=== PATIENT | male | born 1940 | race Caucasian/White ===

== ENCOUNTER 2018-05-16 18:31 | Emergency (ER) | payer OTHER ==
--- NOTE | 2018-05-16 20:12 | RAD REPORT ---
EXAM DESCRIPTION: CT - Head Brain Wo Cont - 05/16/2018 7:52 pm CLINICAL HISTORY: Blunt force trauma, right-sided head laceration, history of leukemia and thrombocy topenia COMPARISON: None. TECHNIQUE: Axial 5 mm thick images of the head were obtained without IV contrast. All CT scans are performed using dose optimization technique as appropriate and may include automated exposure control or mA/KV adjustment according to patient size. FINDINGS: No intracranial hemorrhage, mass, edema or shift of mid-line structures. No acute cortical based infarction. Mild atrophy and chronic ischemic changes are present. Ventricular size is in prop ortion. No abnormal extra-axial fluid collections. Arterial and physiologic calcifications are presen t. Mastoid air cells and visualized portions of the paranasal sinuses are clear. No acute bony findings. Skin milad are present in the right frontal scalp region with no foreign body seen. IMPRESSION: Mild atrophy and chronic ischemic change. No acute intracranial finding.
--- NOTE | 2018-05-16 20:17 | EDPHYS ---
Physician Documentation [facility] Name: Puneet Bo Age: 78 yrs Sex: Male : 1940 Arrival Date: 05/16/2018 Time: 18:33 Bed 28 Private MD: El Barrera V ED Physician Nicko Ogden HPI: 05/16 19:35 This 78 yrs old Male presents to ER via Ambulatory with complaints of jr8 Laceration To Head. 19:35 The patient or guardian reports injury. The complaints affect the top of head. Onset: jr8 The symptoms/episode began/occurred acutely, today. Associated signs and symptoms: The patient has no apparent associated signs or symptoms, Loss of consciousness: This patient did not experience any loss of consciousness. The patient has not experienced similar symptoms in the past. The patient has not recently seen a physician. Patient stated that he was bending over and upon coming up hit head on garden box causing laceration to head. History of leukemia with low platelet count currently per family . Historical: - Allergies: 18:39 No Known Allergies; aj - Home Meds: 18:39 amlodipine 2.5 mg tab 1 tab once daily [Active]; aj - PMHx: 18:39 Leukemia; Hypertension; aj - PSHx: 18:39 COLON SURGERY; PROSTATE CANCER; aj - Immunization history: Last tetanus immunization: < 5 years ago. - Social history:: Smoking status: Patient/guardian denies using tobacco. - Ebola Screening: : Patient negative for fever greater than or equal to 101.5 degrees Fahrenheit, and additional compatible Ebola Virus Disease symptoms Patient denies exposure to infectious person Patient denies travel to an Ebola-affected area in the 21 days before illness onset No symptoms or risks identified at this time. ROS: 19:35 Eyes: Negative for injury, pain, redness, and discharge, ENT: Negative for injury, jr8 pain, and discharge, Neck: Negative for injury, pain, and swelling, Cardiovascular: Negative for chest pain, palpitations, and edema, Respiratory: Negative for shortness of breath, cough, wheezing, and pleuritic chest pain, Abdomen/GI: Negative for abdominal pain, nausea, vomiting, diarrhea, and constipation, Back: Negative for injury and pain, MS/Extremity: Negative for injury and deformity, Neuro: Negative for headache, weakness, numbness, tingling, and seizure. 19:35 Skin: Positive for laceration(s), of the top of head. Exam: 19:35 Eyes: Pupils equal round and reactive to light, extra-ocular motions intact. Lids and jr8 lashes normal. Conjunctiva and sclera are non-icteric and not injected. Cornea within normal limits. Periorbital areas with no swelling, redness, or edema. ENT: Nares patent. No nasal discharge, no septal abnormalities noted. Tympanic membranes are normal and external auditory canals are clear. Oropharynx with no redness, swelling, or masses, exudates, or evidence of obstruction, uvula midline. Mucous membranes moist. Neck: Trachea midline, no thyromegaly or masses palpated, and no cervical lymphadenopathy. Supple, full range of motion without nuchal rigidity, or vertebral point tenderness. No Meningismus. Cardiovascular: Regular rate and rhythm with a normal S1 and S2. No gallops, murmurs, or rubs. Normal PMI, no JVD. No pulse deficits. Respiratory: Lungs have equal breath sounds bilaterally, clear to auscultation and percussion. No rales, rhonchi or wheezes noted. No increased work of breathing, no retractions or nasal flaring. Abdomen/GI: Soft, non-tender, with normal bowel sounds. No distension or tympany. No guarding or rebound. No evidence of tenderness throughout. Back: No spinal tenderness. No costovertebral tenderness. Full range of motion. Skin: Warm, dry with normal turgor. Normal color with no rashes, no lesions, and no evidence of cellulitis. MS/ Extremity: Pulses equal, no cyanosis. Neurovascular intact. Full, normal range of motion. Neuro: Awake and alert, GCS 15, oriented to person, place, time, and situation. Cranial nerves II-XII grossly intact. Motor strength 5/5 in all extremities. Sensory grossly intact. Cerebellar exam normal. Normal gait. 19:35 Head/face: Noted is a laceration(s), that is deep, that is jagged, 4 cm(s), of the top of head. Vital Signs: 18:36 BP 149 / 95; Pulse 73; Resp 17; Temp 99.4; Pulse Ox 98% on R/A; Weight 54.43 kg; Height aj 5 ft. 3 in. (160.02 cm); 20:27 BP 144 / 88; Pulse 73; Resp 16; Pulse Ox 97% on R/A; mb3 18:36 Body Mass Index 21.26 (54.43 kg, 160.02 cm) aj Boston Coma Score: 18:36 Eye Response: spontaneous(4). Verbal Response: oriented(5). Motor Response: obeys aj commands(6). Total: 15. 19:35 Eye Response: spontaneous(4). Verbal Response: oriented(5). Motor Response: obeys jr8 commands(6). Total: 15. Trauma Score (Adult): 18:36 Eye Response: spontaneous(1); Verbal Response: oriented(1); Motor Response: obeys aj commands(2); Systolic BP: > 89 mm Hg(4); Respiratory Rate: 10 to 29 per min(4); Edil Score: 15; Trauma Score: 12 Laceration: 19:40 Wound Repair of 4cm ( 1.6in ) subcutaneous laceration to top of head. Irregularly jr8 shaped.. Minimal bleeding noted.. Distal neuro/vascular/tendon intact. Anesthesia: Local anesthetic administered with 1% lidocaine. Wound prep: Extensive cleansing with betadine, Wound irrigation with saline, Wound explored extensively. Skin closed with 6 1-0 Yesi using staple gun. Patient tolerated well. MDM: 19:11 Patient medically screened. jr8 19:40 Data reviewed: vital signs, nurses notes, radiologic studies, CT scan, and as a result, jr8 I will discharge patient. Data interpreted: Pulse oximetry: on room air is 98 %. Interpretation: normal. Counseling: I had a detailed discussion with the patient and/or guardian regarding: the historical points, exam findings, and any diagnostic results supporting the discharge/admit diagnosis, radiology results, the need for outpatient follow up, a family practitioner, to return to the emergency department if symptoms worsen or persist or if there are any questions or concerns that arise at home. 05/16 19:19 Order name: CT Head Brain wo Cont; Complete Time: 20:16 jr8 Administered Medications: 20:26 Not Given (Patient Refused): Tetanus-Diphtheria Toxoid Adult 0.5 ml IM once mb3 Disposition: 05/17 06:45 Co-signature as Attending Physician, Nicko Ogden MD. Disposition: 05/16/18 20:16 Discharged to Home. Impression: Laceration without foreign body of scalp. - Condition is Stable. - Discharge Instructions: Laceration Care, Adult. - Medication Reconciliation Form, Thank You Letter, Antibiotic Education, Prescription Opioid Use form. - Follow up: El Barrera MD; When: 5 - 6 days; Reason: Wound Recheck, Recheck today's complaints, Continuance of care, Staple/Suture removal, Re-evaluation by your physician. - Problem is new. - Symptoms have improved. Signatures: Dispatcher [employer] EDMS Danielle Ackerman RN RN Adan Ye PA PA jr8 Nicko Ogden MD MD gs Barnett, Mark, RN RN mb3 Corrections: (The following items were deleted from the chart) 05/16 20:33 20:16 05/16/2018 20:16 Discharged to Home. Impression: Laceration without foreign body mb3 of scalp. Condition is Stable. Forms are Medication Reconciliation Form, Thank You Letter, Antibiotic Education, Prescription Opioid Use. Follow up: El Barrera; When: 5 - 6 days; Reason: Wound Recheck, Recheck today's complaints, Continuance of care, Staple/Suture removal, Re-evaluation by your physician. Problem is new. Symptoms have improved. jr8
--- NOTE | 2018-05-16 20:17 | ER ---
Nurse's Notes [facility] Name: Puneet Bo Age: 78 yrs Sex: Male : 1940 Arrival Date: 05/16/2018 Time: 18:33 Bed 28 Private MD: El Barrera V Diagnosis: Laceration without foreign body of scalp Presentation: 05/16 18:34 Presenting complaint: Patient states: Laceration to top of right head that occurred aj just [employer]. Patient has HX of leukemia with low platelets. Denies LOC. Care prior to arrival: None. Mechanism of Injury: Laceration sustained at home, while working, from metal object, Injury was accidental. Trauma event details: Injury occurred in the [facility], Injury occurred: at home. Injury occurred: May 16, 2018 Injury occurred at: 18:36. 18:34 Acuity: ANIL 3 aj 18:34 Method Of Arrival: Ambulatory aj 18:38 Transition of care: patient was not received from another setting of care. Onset of aj symptoms was May 16, 2018. Risk Assessment: Do you want to hurt yourself or someone else? Patient reports no desire to harm self or others. Initial Sepsis Screen: Does the patient meet any 2 criteria? No. Patient's initial sepsis screen is negative. Does the patient have a suspected source of infection? No. Patient's initial sepsis screen is negative. Trauma Activation: Not Applicable Physician: ED Physician; Name: ; Notified At: ; Arrived At: Physician: General Surgeon; Name: ; Notified At: ; Arrived At: Physician: Radiology; Name: ; Notified At: ; Arrived At: Physician: Respiratory; Name: ; Notified At: ; Arrived At: Physician: Lab; Name: ; Notified At: ; Arrived At: Historical: - Allergies: 18:39 No Known Allergies; aj - Home Meds: 18:39 amlodipine 2.5 mg tab 1 tab once daily [Active]; aj - PMHx: 18:39 Leukemia; Hypertension; aj - PSHx: 18:39 COLON SURGERY; PROSTATE CANCER; aj - Immunization history: Last tetanus immunization: < 5 years ago. - Social history:: Smoking status: Patient/guardian denies using tobacco. - Ebola Screening: : Patient negative for fever greater than or equal to 101.5 degrees Fahrenheit, and additional compatible Ebola Virus Disease symptoms Patient denies exposure to infectious person Patient denies travel to an Ebola-affected area in the 21 days before illness onset No symptoms or risks identified at this time. Screenin:29 Abuse screen: Denies threats or abuse. Nutritional screening: No deficits noted. mb3 Tuberculosis screening: No symptoms or risk factors identified. Fall Risk None identified. Primary Survey: 18:36 A: Airway: patent. Breathing/Chest: Respiratory pattern: regular, Respiratory effort: aj spontaneous, unlabored, Breath sounds: clear, bilaterally. Circulation: Skin color: pink. Disability Alert. Assessment: 18:36 General: Appears in no apparent distress. comfortable, Behavior is calm, cooperative, aj appropriate for age. Pain: Complains of pain in right frontal area, right side of the back of head and right temporal area. Neuro: Level of Consciousness is awake, alert, obeys commands, Oriented to person, place, time, situation, Appropriate for age. Respiratory: Airway is patent Respiratory effort is even, unlabored, Respiratory pattern is regular, symmetrical. Derm: Skin is intact, is healthy with good turgor, Skin is pink, warm \T\ dry. normal, Skin temperature is warm. Injury Description: Laceration sustained to right frontal area and right side of the back of head. Vital Signs: 18:36 BP 149 / 95; Pulse 73; Resp 17; Temp 99.4; Pulse Ox 98% on R/A; Weight 54.43 kg; Height aj 5 ft. 3 in. (160.02 cm); 20:27 BP 144 / 88; Pulse 73; Resp 16; Pulse Ox 97% on R/A; mb3 18:36 Body Mass Index 21.26 (54.43 kg, 160.02 cm) aj Bigelow Coma Score: 18:36 Eye Response: spontaneous(4). Verbal Response: oriented(5). Motor Response: obeys aj commands(6). Total: 15. 19:35 Eye Response: spontaneous(4). Verbal Response: oriented(5). Motor Response: obeys jr8 commands(6). Total: 15. Trauma Score (Adult): 18:36 Eye Response: spontaneous(1); Verbal Response: oriented(1); Motor Response: obeys aj commands(2); Systolic BP: > 89 mm Hg(4); Respiratory Rate: 10 to 29 per min(4); Bigelow Score: 15; Trauma Score: 12 ED Course: 18:33 Patient arrived in ED. mr 18:33 El Barrera MD is Private Physician. mr 18:36 Triage completed. aj 18:39 Arm band placed on left wrist. Patient placed in an exam room. aj 18:40 Kuldip Leblanc, RN is Primary Nurse. mb3 19:10 Adan Ferrara PA is PHCP. jr8 19:10 Nicko Ogden MD is Attending Physician. jr8 19:52 CT Head Brain wo Cont In Process Unspecified. EDMS 20:16 El Barrera MD is Referral Physician. jr8 20:30 Patient has correct armband on for positive identification. mb3 20:31 Assist provider with laceration repair on back of head that was between 2.6 to 7.5 cm mb3 using milad. Set up tray. Performed by El Barrera MD. 20:32 Patient did not have IV access during this emergency room visit. mb3 Administered Medications: 20:26 Not Given (Patient Refused): Tetanus-Diphtheria Toxoid Adult 0.5 ml IM once mb3 Outcome: 20:16 Discharge ordered by . jr8 20:30 Discharged to home ambulatory, with family. mb3 20:30 Condition: stable 20:30 Discharge instructions given to patient, Instructed on discharge instructions, follow up and referral plans. wound care, Demonstrated understanding of instructions, follow-up care, wound care. 20:33 Patient left the ED. mb3 Signatures: Dispatcher [employer] EDMS Danielle Ackerman RN RN aj Rivera, Maria mr Adan Ferrara PA PA jr Kuldip Leblanc, YADY RN mb3
== END 2018-05-16 20:33 | disposition home or self-care (01) ==
LOC: ER 18:31
PROC: 0JQ00ZZ Repair Scalp Subcutaneous Tissue and Fascia, Open Approach (ICD-10-PCS; principal; 2018-05-16)
DX: S01.01XA Laceration without foreign body of scalp, initial encounter (principal); W22.8XXA Striking against or struck by other objects, initial encounter; Y93.H2 Activity, gardening and landscaping; Y92.017 Garden or yard in single-family (private) house as the place of occurrence of the external cause; I10 Essential (primary) hypertension; Z85.6 Personal history of leukemia
CPT/HCPCS: 70450; 99283

== ENCOUNTER 2018-05-23 14:29 | Emergency (ER) | payer OTHER ==
--- NOTE | 2018-05-23 16:10 | ER ---
Nurse's Notes [facility] Name: Puneet Bo Age: 78 yrs Sex: Male : 1940 Arrival Date: 05/23/2018 Time: 14:33 Bed 27 Private MD: El Barrera V Diagnosis: Encounter for removal of sutures-[place] Presentation: 05/23 14:40 Presenting complaint: Patient states: milad to be removed from the head. Placed here sv 7 days ago. Transition of care: patient was not received from another setting of care. Onset of symptoms was May 16, 2018. Care prior to arrival: None. 14:40 Method Of Arrival: Ambulatory sv 14:40 Acuity: ANIL 5 sv 15:53 Risk Assessment: Do you want to hurt yourself or someone else? Patient reports no mb3 desire to harm self or others. Initial Sepsis Screen: Does the patient meet any 2 criteria? No. Patient's initial sepsis screen is negative. Does the patient have a suspected source of infection? No. Patient's initial sepsis screen is negative. Historical: - Allergies: 14:41 No Known Allergies; sv - PMHx: 14:41 Hypertension; Leukemia; sv - PSHx: 14:41 COLON SURGERY; PROSTATE CANCER; sv - Immunization history:: Adult Immunizations up to date. - Social history:: Smoking status: Patient/guardian denies using tobacco. - Ebola Screening: : No symptoms or risks identified at this time. Screenin:53 Abuse screen: Denies threats or abuse. Nutritional screening: No deficits noted. mb3 Tuberculosis screening: No symptoms or risk factors identified. Fall Risk None identified. Assessment: 15:50 General: Appears in no apparent distress. comfortable, Behavior is calm, cooperative, mb3 appropriate for age. Pain: Denies pain. Neuro: No deficits noted. Cardiovascular: No deficits noted. Respiratory: No deficits noted. GI: No deficits noted. No signs and/or symptoms were reported involving the gastrointestinal system. : No deficits noted. No signs and/or symptoms were reported regarding the genitourinary system. Injury Description: healing laceration to right side of top of head. Vital Signs: 14:41 BP 128 / 75; Pulse 56; Resp 16; Temp 97.8; Pulse Ox 100% ; sv ED Course: 14:33 Patient arrived in ED. sb2 14:33 El Barrera MD is Private Physician. sb2 14:40 Triage completed. sv 14:41 Arm band placed on right wrist. sv 14:56 [facility] Lock[facility]. jmm 14:56 Og Cedeno MD is Attending Physician. jmm 15:20 Kuldip Leblanc, RN is Primary Nurse. mb3 15:53 Patient has correct armband on for positive identification. mb3 16:08 El Barrera MD is Referral Physician. jmm 16:14 No provider procedures requiring assistance completed. Patient did not have IV access mb3 during this emergency room visit. Administered Medications: No medications were administered Outcome: 15:53 Condition: stable mb3 16:09 Discharge ordered by . jmm 16:14 Discharged to home ambulatory. mb3 16:14 Discharge instructions given to patient, family, Instructed on discharge instructions, follow up and referral plans. wound care, Demonstrated understanding of instructions, follow-up care, wound care. 16:15 Patient left the ED. mb3 Signatures: Annie Barrera, RN RN Jack Lockwood PA PA Tessy Chacko sb2 Kuldip Leblanc, RN RN mb3
--- NOTE | 2018-05-23 16:10 | EDPHYS ---
Physician Documentation [facility] Name: Puneet Bo Age: 78 yrs Sex: Male : 1940 Arrival Date: 05/23/2018 Time: 14:33 Bed 27 Private MD: El Barrera V ED Physician Og Cedeno HPI: 05/23 16:02 This 78 yrs old Male presents to ER via Ambulatory with complaints of Suture jmm Removal. 16:02 The patient has milad on the top of head. Previous treatment: 7 days prior. jmm Sutures/milad progress: The patient has no c/o's. The wound is well-healing with no redness, swelling, discharge, or dehiscence reported. Patient states he received 6 milad 7 days ago. Denies fever , states having intermittent bleeding due to low platelet count. . Historical: - Allergies: 14:41 No Known Allergies; sv - PMHx: 14:41 Hypertension; Leukemia; sv - PSHx: 14:41 COLON SURGERY; PROSTATE CANCER; sv - Immunization history:: Adult Immunizations up to date. - Social history:: Smoking status: Patient/guardian denies using tobacco. - Ebola Screening: : No symptoms or risks identified at this time. ROS: 16:02 Constitutional: Negative for fever, chills, and weight loss, Cardiovascular: Negative jmm for chest pain, palpitations, and edema, Respiratory: Negative for shortness of breath, cough, wheezing, and pleuritic chest pain. 16:02 Skin: Positive for laceration(s), Negative for erythema. 16:02 All other systems are negative. Exam: 16:02 Constitutional: This is a well developed, well nourished patient who is awake, alert, jmm and in no acute distress. 16:02 Cardiovascular: Regular rate and rhythm. No edema appreciated Respiratory: Normal respirations, no respiratory distress appreciated Abdomen/GI: Non distended, soft Back: Normal ROM 16:02 Head/face: healing laceration noted to the right top of the head. 16:02 Skin: healing laceration noted to the top of the head. 16:02 Neuro: Orientation: is normal, Mentation: is normal, Memory: is normal. 16:02 Psych: Behavior/mood is pleasant, cooperative. Vital Signs: 14:41 BP 128 / 75; Pulse 56; Resp 16; Temp 97.8; Pulse Ox 100% ; sv Procedures: 16:02 Suture/Staple removal: Removed 6 milad, from top of head, site appears well healed, edison Patient tolerated well. MDM: 16:02 Patient medically screened. [facility] 16:02 Data reviewed: vital signs, nurses notes. Counseling: I had a detailed discussion with edison the patient and/or guardian regarding: the historical points, exam findings, and any diagnostic results supporting the discharge/admit diagnosis, the need for outpatient follow up, to return to the emergency department if symptoms worsen or persist or if there are any questions or concerns that arise at home. Administered Medications: No medications were administered Disposition: 17:53 Co-signature as Attending Physician, Og Cedeno MD. rn Disposition: 05/23/18 16:09 Discharged to Home. Impression: Encounter for removal of sutures - [place]. - Condition is Stable. - Discharge Instructions: Suture Removal, Care After. - Medication Reconciliation Form, Thank You Letter, Antibiotic Education, Prescription Opioid Use form. - Follow up: El Barrera MD; When: 2 - 3 days; Reason: Continuance of care. Signatures: Annie Barrera RN RN Jack Trotter PA PA [facility] Og Cedeno MD MD rn Barnett, Mark, RN RN mb3 Corrections: (The following items were deleted from the chart) 16:15 16:09 05/23/2018 16:09 Discharged to Home. Impression: Encounter for removal of sutures mb3 - [place]. Condition is Stable. Forms are Medication Reconciliation Form, Thank You Letter, Antibiotic Education, Prescription Opioid Use. Follow up: El Barrera; When: 2 - 3 days; Reason: Continuance of care. [place]
== END 2018-05-23 16:15 | disposition home or self-care (01) ==
LOC: ER 14:29
DX: S01.01XD Laceration without foreign body of scalp, subsequent encounter (principal); X58.XXXD Exposure to other specified factors, subsequent encounter; Z48.02 Encounter for removal of sutures
CPT/HCPCS: 99281